=== PATIENT | male | born 1955 | race African-American/Black ===

== ENCOUNTER 2017-12-12 22:47 | Emergency (ER) | payer OTHER ==
[2017-12-12 22:54] VITALS: BP 198/91
--- NOTE | 2017-12-12 23:16 | EDPHY ---
H & P Stated Complaint: L KNEE PAIN X 6 DAYS Time Seen by Provider: 12/12/17 23:07 HPI/ROS: CHIEF COMPLAINT: Left knee pain post twisting incident HISTORY OF PRESENT ILLNESS: 62-year-old immunocompetent male complaining of left knee pain which started 6 days ago and he is getting up from a chair, twisted his left knee and felt immediate pain. The pain has been present ever since particularly in the popliteal fossa. He has reproducible pain with weight -bearing. Today he twisted again and noticed pain to the left knee. No history of DVT or coagulopathic disorder. No change in coloration the knee no increased warmth. No fever or chills. No flu-like symptoms. No history of IV drug use. PRIMARY CARE PROVIDER: REVIEW OF SYSTEMS: A ten point review of systems was performed and is negative with the exception of the items mentioned in the HPI PAST MEDICAL & SURGICAL HISTORY: Prostatic adenocarcinoma. SOCIAL HISTORY: No IV drug use [ PHYSICAL EXAM (Prior to examination, patient consented to physical exam, hands were washed and my usual and customary physical exam procedures followed) 1) GENERAL: Very pleasant, Well-developed, well-nourished, alert and oriented. Appears to be in no acute distress. Smiling shakes my hand appears well 2) HEAD: Normocephalic, atraumatic 3) HEENT: Pupils equal, round, reactive to light bilaterally. Sclera anicteric. 4) NECK: Full range of motion, no meningeal signs. 5) LUNGS: Clear auscultation bilaterally, no wheezes, no rhonchi, no retractions. 6) HEART: Regular rate and rhythm, no murmur, no heave, no gallop. 7) ABDOMEN: No guarding, no rebound, no focal tenderness,, 8) MUSCULOSKELETAL: Left lower extremity: Left knee has normal coloration normal temperature. Tender to palpation infero-medial aspect of the knee. Tender to palpation popliteal fossa. Negative Homans no palpable cord. DP PT pulses present and brisk distally. Soft compartments. 9) BACK: No CVA tenderness, no midline vertebral tenderness, no fluctuance, no step-off, no obvious trauma, no visual or palpable abnormality. 10) SKIN: No rash, no petechiae. 11) Psychiatric: Patient is oriented X 3, there is no agitation. DIFFERENTIAL DIAGNOSIS: In no particular order including but not limited to fracture, sprain, strain, DVT, septic arthritis, inflammatory arthritis, pathologic fracture - Personal History Current Tetanus Diphtheria and Acellular Pertussis (TDAP): Yes Tetanus Vaccine Date: 2011 - Medical/Surgical History Hx Asthma: No Hx Chronic Respiratory Disease: No Hx Diabetes: No Hx Cardiac Disease: No Hx Renal Disease: No Hx Cirrhosis: No Hx Alcoholism: No Hx HIV/AIDS: No Hx Splenectomy or Spleen Trauma: No Other PMH: HERNIA,ORTHO TORN ACHILLES AND LASIK, PROSTATE CA SX - Social History Smoking Status: Former smoker Constitutional: Initial Vital Signs Temperature (C) 36.6 C 12/12/17 22:52 Heart Rate 71 12/12/17 22:52 Respiratory Rate 16 12/12/17 22:52 Blood Pressure 198/91 H 12/12/17 22:52 O2 Sat (%) 96 12/12/17 22:52 O2 Delivery Mode Room Air Allergies/Adverse Reactions: No Allergies [NKDA] Allergy (Verified 11/10/13 10:47) Home Medications: Medication Instructions Recorded Aspirin EC [Aspirin EC 81 mg (OTC)] 81 mg PO DAILY 01/02/15 Losartan/Hctz 50/12.5 12/12/17 Medical Decision Making - Diagnostics Imaging Results: Imaging Impressions Knee X-Ray 12/12/17 23:13 Impression: Negative for fracture. Degenerative changes are noted. If symptoms persist, MRI could be considered for further evaluation. 11:54 p.m.: Ultrasound interpreted by radiologist as negative for DVT. Images reviewed myself Procedures: Procedure: Splint A knee immobilizer splint was applied by ER commercial hvac technician. After application of the splint I returned and re-examined the patient. The splint was adequately immobilizing the joint and distal to the splint the patient's circulation and sensation were intact. Patient shows no signs of compartment syndrome. Was given orthopedic precautions. ED Course/Re-evaluation: 11:15 p.m.: Will obtain x-ray, ultrasound left lower extremity. At this time I think that septic arthritis is less than likely. Do not think that the benefits of arthrocentesis outweigh the risks. I saw this patient independently based on established practice protocols. Care of patient under supervision of secondary supervising physician Dr Parker with whom I discussed case. 11:54 p.m.: Re-evaluation. Discussed his negative x-ray negative DVT study. Doubt septic arthritis. Doubt cellulitis. I recommended knee immobilizer, close follow up with Orthopedics as he will more than likely necessitate MRI of the knee. I do not think this needs to occur on an emergent basis from the emergency department. Definitely if he develops discoloration, increase in temperature, he needs to return to the ER for re-evaluation. He feels comfortable being discharged. All questions and concerns addressed by myself. I saw this patient independently based on established practice protocols. Care of patient under supervision of secondary supervising physician Dr Parker . Departure - Departure Disposition: Home, Routine, Self-Care Clinical Impression: Strain of left knee Qualifiers: Encounter type: initial encounter Qualified Code(s): S86.912A - Strain of unspecified muscle(s) and tendon(s) at lower leg level, left leg, initial encounter Condition: Good Instructions: Knee Pain (ED), Knee Immobilizer (ED) Additional Instructions: Return to the ER immediately if you experience discoloration, have worsening pain, numbness, tingling, or any other symptoms that concern you. If you received x-rays in the emergency department today, be advised, that ligamentous , tendon, muscular, and other non-bony injury cannot be fully ruled out. Try to keep your affected extremity elevated above the level of your chest, and keep cold packs on the affected area, for the next 48 hours. Referrals: Zoe Laguerre MD [Medical Doctor] - 2-3 days, call for appt.
== END 2017-12-13 00:09 | disposition home or self-care (01) ==
DX: S86.912A Strain of unspecified muscle(s) and tendon(s) at lower leg level, left leg, initial encounter (principal); Z79.82 Long term (current) use of aspirin; Z85.46 Personal history of malignant neoplasm of prostate; Z87.891 Personal history of nicotine dependence; X50.9XXA Other and unspecified overexertion or strenuous movements or postures, initial encounter; Y99.8 Other external cause status; Y93.89 Activity, other specified
CPT/HCPCS: L1830